=== PATIENT | female | born 1965 | race American Indian/Alaskan Native ===

== ENCOUNTER 2020-01-21 09:53 | Outpatient (CLI) | payer OTHER ==
[2020-01-21 11:48] LABS: Blood Urea Nitrogen 9 mg/dL (7-17)
--- NOTE | 2020-01-21 13:19 | Cat Scan Report ---
CT ABDOMEN AND PELVIS WITH CONTRAST INDICATION / CLINICAL INFORMATION: RIGHT LOWER/UPPER QUADRANT PAIN,PELVIC PERINEAL PAIN. TECHNIQUE: Axial CT images were obtained through the abdomen and pelvis after IV contrast. All CT scans at this location are performed using CT dose reduction for ALARA by means of automated exposure control. COMPARISON: None available. FINDINGS: LOWER CHEST: Mild aortic valve calcification. HEPATOBILIARY: Enlarged liver measuring up to 25 cm with diffuse hypoattenuation suggesting fatty inf iltration. No focal lesion. No significant biliary abnormality. PANCREAS: No significant abnormality. SPLEEN: No significant abnormality. ADRENALS: No significant abnormality. GENITOURINARY: No significant abnormality. GASTROINTESTINAL/MESENTERY: Mild fat haziness adjacent to the mid appendix best visualized on axial s eries 2 images 120 10/02/2027. No significant appendiceal wall thickening. No free air or significant f ree fluid. Colon demonstrates constipation without evidence of bowel obstruction. Small bowel is deco mpressed without evidence of obstruction or significant inflammation change. RETROPERITONEUM: No significant adenopathy. REPRODUCTIVE ORGANS: No significant abnormality. VASCULAR: No significant abnormality. SKELETAL SYSTEM: No significant abnormality. ADDITIONAL FINDINGS: None. IMPRESSION: 1. Mild fat haziness adjacent to the midportion of the appendix without significant appendiceal thick ening. Findings could represent early uncomplicated appendicitis. 2. Markedly enlarged liver with diffuse fatty infiltration. 3. Mild aortic valve calcination dictation. Correlate for stenosis. Signer Name: Jorge Blair MD Signed: 01/21/2020 1:15 PM Workstation Name: [id number]
== END 2020-01-21 09:54 | disposition home or self-care (01) ==
LOC: CT 09:53
PROVIDERS: ATTEND Obstetrics & Gynecology
DX: K76.0 Fatty (change of) liver, not elsewhere classified (principal); I70.0 Atherosclerosis of aorta; K59.09 Other constipation
CPT/HCPCS: 36415; 74177; 82565; 84520; Q9967